=== PATIENT | female | born 1955 | race Caucasian/White ===

== ENCOUNTER 2016-11-14 11:44 | Emergency (ER) | payer OTHER, SELFPAY ==
[~2016-11-14] VITALS: Ht 167.6 cm; Wt 72.7 kg
[2016-11-14 13:18] LABS: HEMOGLOBIN 14.4 g/dL (11.7-16.4)
[2016-11-14 13:30] LABS: ASPARTATE AMINO TRANSFERASE 17 U/L (15-37); BLOOD UREA NITROGEN 14 mg/dL (7-18)
[2016-11-14 16:11] VITALS: BP 184/92
== END 2016-11-14 16:11 | disposition home or self-care (01) ==
LOC: ED 15:47
DX: I80.01 Phlebitis and thrombophlebitis of superficial vessels of right lower extremity (principal); F17.200 Nicotine dependence, unspecified, uncomplicated
CPT/HCPCS: 36415; 71020; 80053; 83880; 85025; 93005; 99285

== ENCOUNTER 2019-02-07 12:34 | Inpatient (IN) | payer MEDICARE, OTHER ==
[~2019-02-07] VITALS: Ht 167.6 cm; Wt 73.7 kg
--- NOTE | 2019-02-07 12:48 | NUR ---
Pt ambulatory with personal cane with steady gait and balance from triage to ED room.
--- NOTE | 2019-02-07 13:03 | NUR ---
PT ARRIVED TO ROOM 02 AMBULATORY. PT C/O "BOTH FEET ARE LIKE THIS (SWOLLEN) OFF AND ON FOR 5 WEEKS. PAIN COMING UP LEGS. HAVE BEEN REAL SHORT OF BREATH THE LAST FEW DAYS" PT AAO X 4, LUNG SOUNDS DIMINISHED THROUGHOUT, STRONG PRODUCTIVE COUGH. PT HAS ODOR OF CIRGATETTES, CURRENTLY SMOKES. AT BEDSIDE. PT IN GOWN AND ATTACHED TO MONITOR.
--- NOTE | 2019-02-07 13:22 | NUR ---
LUNCH RN: MD TO BEDSIDE FOR ASSESSMENT. AWAITING ORDERS AT THIS TIME
--- NOTE | 2019-02-07 13:35 | NUR ---
LUNCH RN: ORDERS RECEIVED, RAD AT BEDSIDE. ALL MONITORS IN PLACE. AWAITING LABS AND TEST RESULTS AT THIS TIME. PT CONTINUES TO BE HTN WITH NO HX. ABLE TO SPEAK IN FULL SENTENCES. AT BEDSIDE. CALL LIGHT WITHIN REACH. WILL CONTINUE TO MONITOR
[2019-02-07 13:45] LABS: BASOPHILS # (AUTO) 0.05 x10^3/uL (0-0.1); BASOPHILS % (AUTO) 1 % (0-1); EOSINOPHILS # (AUTO) 0.04 x10^3/uL (0-0.4); EOSINOPHILS % (AUTO) 1 % (1-7); LYMPHOCYTES # (AUTO) 0.99 x10^3/uL (1-3.4); LYMPHOCYTES % (AUTO) 18 % (22-44); MD NO; MEAN CORPUSCULAR HEMOGLOBIN 29.1 pg (27.0-34.8); MEAN CORPUSCULAR HGB CONC 32.1 g/dL (32.4-35.8); MEAN CORPUSCULAR VOLUME 90.6 fL (80-100); MONOCYTES # (AUTO) 0.47 x10^3/uL (0.2-0.8); MONOCYTES % (AUTO) 8 % (2-9); NEUTROPHILS # (AUTO) 4.04 x10^3/uL (1.8-6.8); NEUTROPHILS % (AUTO) 72 % (42-75); PLATELET COUNT 219 x10^3/uL (130-400); RED BLOOD COUNT 5.04 x10^6/uL (3.82-5.3); RED CELL DISTRIBUTION WIDTH 15.1 % (9.6-15.2)
[2019-02-07 13:49] LABS: INTERNATIONAL NORMALIZED RATIO 1.19 (0.93-1.1); PROTHROMBIN TIME 12.4 Seconds (9.6-11.5)
[2019-02-07 13:50] LABS: ALANINE AMINOTRANSFERASE 39 U/L (12-78); ALBUMIN 3.4 g/dL (3.4-5.0); ANION GAP 8 mmol/L (5-15); CALCIUM 8.7 mg/dL (8.5-10.1); CHLORIDE 108 mmol/L (98-107)
[2019-02-07 13:55] LABS: ALKALINE PHOSPHATASE 74 U/L (45-117); BILIRUBIN,TOTAL 0.9 mg/dL (0.2-1.0); TOTAL PROTEIN 6.2 g/dL (6.4-8.2)
--- NOTE | 2019-02-07 14:00 | NUR ---
REPORT RECEIVED FROM BREAK RN. PT RESTING COMFORTABLY IN GOWN AND ON GURNEY. AT BEDSIDE.
--- NOTE | 2019-02-07 14:18 | NUR ---
20G PIV ESTABLISHED BY THIS RN IN LEFT AC.
--- NOTE | 2019-02-07 14:24 | NUR ---
NOTIFIED OF PT'S LAB RESULTS. AWAITING MD ORDERS.
--- NOTE | 2019-02-07 14:48 | NUR ---
PT AMBULATED TO RESTROOM WITH STEADY GAIT AND PERSONAL CANE. STAFF NEARBY TO ASSIST.
[2019-02-07] MEDS ORDERED: NICOTINE 14MG/24 HR PATCH.TD24 TD ONE (15:30)
[2019-02-07] MEDS ORDERED: SODIUM CHLORIDE FLUSH 10ML SYR IVF PRN (15:30)
[2019-02-07] MEDS ORDERED: NICOTINE 14MG/24 HR PATCH.TD24 ONE (15:30)
[2019-02-07] MEDS ORDERED: ASPIRIN 81 MG TABLET CHEW PO ONE (15:30)
[2019-02-07] MEDS ORDERED: ASPIRIN 81 MG TABLET CHEW ONE (15:30)
--- NOTE | 2019-02-07 15:33 | NUR ---
PT MEDICATED PER MD ORDER, SEE MAR. PT RESTING ON EOB PER REQUEST, AT BEDSIDE.
--- NOTE | 2019-02-07 15:49 | NUR ---
REPORT GIVEN TO MELANI MERA. PT TO TRANSFER TO NEW ROOM WITH ALL BELONGINGS AND CHART.
--- NOTE | 2019-02-07 16:00 | NUR ---
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
[2019-02-07 16:11] VITALS: BP 191/123
[2019-02-07] MEDS ORDERED: NITROGLYCERIN 0.4 MG BOTTLE (25 TABS) SL PRN (16:30)
[2019-02-07] MEDS ORDERED: LABETALOL 5MG/ML, 20ML IVPush PRN (16:30)
[2019-02-07] MEDS ORDERED: LIDODERM 5% PATCH TD PRN (16:30)
[2019-02-07] MEDS ORDERED: NITROGLYCERIN 0.4 MG/SPRAY SL PRN (16:30)
[2019-02-07] MEDS: FUROSEMIDE 40 MG/4 ML IV SCH ×2 (16:48→16:57)
[2019-02-07 17:02] LABS: CHOLESTEROL, TOTAL 181 mg/dL (140-239); TRIGLYCERIDES 111 mg/dL (50-200); VLDL CHOLESTEROL 22 mg/dL (0-25)
[2019-02-07 17:05] LABS: CHOL/HDL RATIO 4.6; HDL CHOL % 22 % (28-40); HDL CHOLESTEROL (DIRECT) 39 mg/dL (40-60); LDL CHOLESTEROL,CALCULATED 120 mg/dL (54-169); LDL/HDL RATIO 3.1 (0.5-3.0); TROPONIN I 0.065 ng/mL (0.000-0.045)
[2019-02-07 17:21] LABS: HEMOGLOBIN A1C 5.5 % (4.2-6.3)
[2019-02-07 19:58] VITALS: BP 181/127
[2019-02-07] MEDS: hydrALAzine 20 MG/ML, 1ML IVPush PRN (20:15)
[2019-02-07] MEDS: ENOXAPARIN 40 MG/0.4 ML SQ SCH (20:18)
[2019-02-07 21:34] VITALS: BP_SYST 187; BP_DIAS 113; BP_DIAS 123
[2019-02-07] MEDS: LABETALOL 5 MG/ML SYRINGE IVPush PRN (21:36)
[2019-02-07] MEDS: ACETAMINOPHEN 325 MG TABLET PO PRN (21:38)
[2019-02-07 22:45] VITALS: BP 160/91
[2019-02-07 23:18] LABS: TROPONIN I 0.057 ng/mL (0.000-0.045)
[2019-02-08 02:10] VITALS: BP 170/94
[2019-02-08 04:56] LABS: BASOPHILS # (AUTO) 0.04 x10^3/uL (0-0.1); BASOPHILS % (AUTO) 1 % (0-1); EOSINOPHILS % (AUTO) 2 % (1-7); LYMPHOCYTES # (AUTO) 1.25 x10^3/uL (1-3.4); LYMPHOCYTES % (AUTO) 24 % (22-44); MD NO; MEAN CORPUSCULAR HEMOGLOBIN 29.9 pg (27.0-34.8); MEAN CORPUSCULAR HGB CONC 32.6 g/dL (32.4-35.8); MEAN CORPUSCULAR VOLUME 91.5 fL (80-100); MEAN PLATELET VOLUME 8.1 fL (7.4-10.4); MONOCYTES # (AUTO) 0.47 x10^3/uL (0.2-0.8); MONOCYTES % (AUTO) 9 % (2-9); NEUTROPHILS % (AUTO) 65 % (42-75); PLATELET COUNT 204 x10^3/uL (130-400); RED BLOOD COUNT 5.14 x10^6/uL (3.82-5.3)
[2019-02-08 05:05] LABS: ALBUMIN 2.9 g/dL (3.4-5.0); ANION GAP 9 mmol/L (5-15); CALCIUM 8.1 mg/dL (8.5-10.1); CHLORIDE 108 mmol/L (98-107)
[2019-02-08 05:16] LABS: ALANINE AMINOTRANSFERASE 34 U/L (12-78); ALKALINE PHOSPHATASE 72 U/L (45-117); BILIRUBIN,TOTAL 0.9 mg/dL (0.2-1.0); TOTAL PROTEIN 5.5 g/dL (6.4-8.2)
[2019-02-08 06:20] VITALS: BP 173/106
[2019-02-08] MEDS: ASPIRIN 325 MG TABLET EC PO SCH (06:22)
[2019-02-08] MEDS: LABETALOL 5 MG/ML SYRINGE IVPush PRN (06:22)
[2019-02-08 06:58] VITALS: BP 157/96
[2019-02-08] MEDS ORDERED: POTASSIUM CHLORIDE 20 MEQ TAB.ER.PRT PO ONE ×2 (08:00→11:00)
[2019-02-08] MEDS ORDERED: LISINOPRIL 10 MG TABLET PO SCH (09:00)
[2019-02-08] MEDS: FUROSEMIDE 40 MG/4 ML IV SCH ×2 (09:26→16:42)
[2019-02-08 13:39] VITALS: BP 149/91
[2019-02-08 16:38] VITALS: BP 145/89
[2019-02-08 18:59] VITALS: BP 133/81
[2019-02-08] MEDS: ENOXAPARIN 40 MG/0.4 ML SQ SCH (20:17)
[2019-02-09 01:14] VITALS: BP 164/93
[2019-02-09 05:10] LABS: BASOPHILS # (AUTO) 0.03 x10^3/uL (0-0.1); BASOPHILS % (AUTO) 1 % (0-1); EOSINOPHILS # (AUTO) 0.12 x10^3/uL (0-0.4); EOSINOPHILS % (AUTO) 2 % (1-7); LYMPHOCYTES # (AUTO) 1.41 x10^3/uL (1-3.4); LYMPHOCYTES % (AUTO) 25 % (22-44); MD NO; MEAN CORPUSCULAR HGB CONC 32.6 g/dL (32.4-35.8); MEAN PLATELET VOLUME 8.3 fL (7.4-10.4); MONOCYTES # (AUTO) 0.56 x10^3/uL (0.2-0.8); MONOCYTES % (AUTO) 10 % (2-9); NEUTROPHILS # (AUTO) 3.52 x10^3/uL (1.8-6.8); NEUTROPHILS % (AUTO) 62 % (42-75); PLATELET COUNT 194 x10^3/uL (130-400); RED BLOOD COUNT 4.93 x10^6/uL (3.82-5.3); RED CELL DISTRIBUTION WIDTH 15.2 % (9.6-15.2)
[2019-02-09 05:17] LABS: ANION GAP 8 mmol/L (5-15); CALCIUM 8.2 mg/dL (8.5-10.1); CHLORIDE 108 mmol/L (98-107); CREATININE 0.86 mg/dL (0.55-1.02)
[2019-02-09 05:43] VITALS: BP 173/100
[2019-02-09] MEDS: ACETAMINOPHEN 325 MG TABLET PO PRN (05:48)
[2019-02-09] MEDS: ASPIRIN 325 MG TABLET EC PO SCH (05:48)
[2019-02-09] MEDS: hydrALAzine 20 MG/ML, 1ML IVPush PRN (05:49)
[2019-02-09 07:37] VITALS: BP 173/95
[2019-02-09] MEDS: FUROSEMIDE 40 MG/4 ML IV SCH (07:37)
[2019-02-09] MEDS ORDERED: POTASSIUM CHLORIDE 20 MEQ TAB.ER.PRT PO ONE (08:30)
[2019-02-09] MEDS ORDERED: LISINOPRIL 10 MG TABLET PO SCH (09:30)
[2019-02-09 13:27] VITALS: BP 168/77
[2019-02-09 13:49] LABS: MICROSCOPIC NOT IND
[2019-02-09] MEDS: LISINOPRIL 5 MG TABLET PO SCH (14:55)
[2019-02-09] MEDS ORDERED: NICOTINE 21 MG/24 HR PATCH.TD24 TD ONE (16:00)
[2019-02-09] MEDS: METOPROLOL TARTRATE 25 MG TABLET PO SCH (17:26)
[2019-02-09 19:46] VITALS: BP 149/91
[2019-02-09] MEDS: ENOXAPARIN 40 MG/0.4 ML SQ SCH (20:27)
[2019-02-10 00:59] VITALS: BP 151/90
[2019-02-10 05:21] VITALS: BP 166/90
[2019-02-10] MEDS: ASPIRIN 325 MG TABLET EC PO SCH (05:22)
[2019-02-10] MEDS: METOPROLOL TARTRATE 25 MG TABLET PO SCH (05:23)
[2019-02-10 05:54] LABS: BASOPHILS # (AUTO) 0.06 x10^3/uL (0-0.1); BASOPHILS % (AUTO) 1 % (0-1); EOSINOPHILS # (AUTO) 0.12 x10^3/uL (0-0.4); EOSINOPHILS % (AUTO) 2 % (1-7); LYMPHOCYTES # (AUTO) 1.54 x10^3/uL (1-3.4); LYMPHOCYTES % (AUTO) 27 % (22-44); MD NO; MEAN CORPUSCULAR HEMOGLOBIN 29.3 pg (27.0-34.8); MEAN CORPUSCULAR HGB CONC 32.4 g/dL (32.4-35.8); MEAN CORPUSCULAR VOLUME 90.5 fL (80-100); MONOCYTES # (AUTO) 0.59 x10^3/uL (0.2-0.8); MONOCYTES % (AUTO) 10 % (2-9); NEUTROPHILS % (AUTO) 60 % (42-75); PLATELET COUNT 214 x10^3/uL (130-400); RED BLOOD COUNT 5.19 x10^6/uL (3.82-5.3); RED CELL DISTRIBUTION WIDTH 15.5 % (9.6-15.2)
[2019-02-10 06:08] LABS: ANION GAP 7 mmol/L (5-15); CHLORIDE 103 mmol/L (98-107)
[2019-02-10 06:10] LABS: CREATININE 1.08 mg/dL (0.55-1.02)
[2019-02-10 06:56] VITALS: BP 156/95
[2019-02-10] MEDS: LISINOPRIL 5 MG TABLET PO SCH (08:11)
[2019-02-10] MEDS ORDERED: FUROSEMIDE 20 MG TABLET PO SCH (09:00)
[2019-02-10] MEDS ORDERED: SPIR25TA5 PO (11:15)
[2019-02-10] MEDS ORDERED: ATOR-2 PO (11:15)
[2019-02-10] MEDS ORDERED: METO200T47 PO (11:15)
[2019-02-10] MEDS ORDERED: LISI5TAB7 PO (11:15)
[2019-02-10] MEDS ORDERED: METOPROLOL TARTRATE 25 MG TABLET PO SCH (18:00)
[2019-02-10] MEDS ORDERED: ATORVASTATIN 10 MG TABLET PO SCH (21:00)
[2019-02-11] MEDS ORDERED: SPIRONOLACTONE 25 MG TABLET PO SCH (09:00)
== END 2019-02-10 15:25 | disposition home health service (06) | DRG 291 ==
LOC: ED 13:49 → EDIP 15:18 → 5SO 16:04 → DCLOUNGE 02-10 15:05
PROVIDERS: ADMIT Internal Medicine; ATTEND Internal Medicine
DX: I11.0 Hypertensive heart disease with heart failure (principal); J96.01 Acute respiratory failure with hypoxia; I24.8 Other forms of acute ischemic heart disease; I31.3 Pericardial effusion (noninflammatory); I50.43 Acute on chronic combined systolic (congestive) and diastolic (congestive) heart failure; F03.90 Unspecified dementia, unspecified severity, without behavioral disturbance, psychotic disturbance, mood disturbance, and anxiety; I16.0 Hypertensive urgency; E87.6 Hypokalemia; J44.9 Chronic obstructive pulmonary disease, unspecified; I35.8 Other nonrheumatic aortic valve disorders; F17.210 Nicotine dependence, cigarettes, uncomplicated; I37.1 Nonrheumatic pulmonary valve insufficiency; Z86.718 Personal history of other venous thrombosis and embolism; Z86.72 Personal history of thrombophlebitis; Z91.14 Patient's other noncompliance with medication regimen; Z80.8 Family history of malignant neoplasm of other organs or systems
CPT/HCPCS: 36415; 71045; 80048; 80053; 80061; 81003; 82140; 82607; 83036; 83735; 83880; 84100; 84132; 84443; 84484; 85025; 85610; 85730; 93005; 93306; 93970; G0378; J1650; J1940; 92523-GN; G0515-GN; J0360

== ENCOUNTER 2019-03-10 18:19 | Emergency (ER) | payer MEDICARE ==
[~2019-03-10] VITALS: Ht 167.6 cm; Wt 77.1 kg
[~2019-03-10 18:19] MED LIST: ATOR-2 PO; LISI5TAB7 PO; METO200T47 PO; SPIR25TA5 PO
[2019-03-10 18:54] LABS: BASOPHILS # (AUTO) 0.07 x10^3/uL (0-0.1); BASOPHILS % (AUTO) 1 % (0-1); EOSINOPHILS # (AUTO) 0.14 x10^3/uL (0-0.4); EOSINOPHILS % (AUTO) 2 % (1-7); LYMPHOCYTES # (AUTO) 0.87 x10^3/uL (1-3.4); LYMPHOCYTES % (AUTO) 15 % (22-44); MD NO; MEAN CORPUSCULAR HGB CONC 33.1 g/dL (32.4-35.8); MEAN CORPUSCULAR VOLUME 90.6 fL (80-100); MONOCYTES # (AUTO) 0.59 x10^3/uL (0.2-0.8); MONOCYTES % (AUTO) 10 % (2-9); NEUTROPHILS # (AUTO) 4.27 x10^3/uL (1.8-6.8); NEUTROPHILS % (AUTO) 72 % (42-75); PLATELET COUNT 184 x10^3/uL (130-400); RED BLOOD COUNT 4.83 x10^6/uL (3.82-5.3); RED CELL DISTRIBUTION WIDTH 15.8 % (9.6-15.2)
[2019-03-10 19:06] LABS: ALANINE AMINOTRANSFERASE 29 U/L (12-78); ALBUMIN 3.5 g/dL (3.4-5.0); ANION GAP 6 mmol/L (5-15); CALCIUM 8.8 mg/dL (8.5-10.1); CHLORIDE 111 mmol/L (98-107); CREATININE 1.12 mg/dL (0.55-1.02); SALICYLATE LEVEL 3.4 mg/dL (2.8-20.0)
[2019-03-10 19:08] LABS: ALKALINE PHOSPHATASE 71 U/L (45-117); BILIRUBIN,TOTAL 0.8 mg/dL (0.2-1.0); TOTAL PROTEIN 6.8 g/dL (6.4-8.2)
--- NOTE | 2019-03-10 19:47 | NUR ---
pt in triage, then to room 40
--- NOTE | 2019-03-10 19:54 | NUR ---
pt ambulatory to the bathroom with steady gait to provide urine sample.
--- NOTE | 2019-03-10 20:11 | NUR ---
pt here with complaint of seeing and hearing things that are not there. pt is a poor historian. pt has significant other at bedside who states she hears and sees people in their apartment that are not there. pt speaking nonsensically making statments like, "my incognance is wasted right now" and "i need to have brain surgery" pt was recently seen in this ER for exacerbation of CHF and when asked by this nurse if she had any problems withe her heart, her answer was no.
--- NOTE | 2019-03-10 20:14 | NUR ---
pt went to the bathroom and was unable to provide urine sample.
--- NOTE | 2019-03-10 20:15 | NUR ---
er pa jermaine in to assess pt
--- NOTE | 2019-03-10 21:29 | NUR ---
pt ambulatory to the bathroom to provide urine sample at this time.
--- NOTE | 2019-03-10 21:50 | NUR ---
pt provided urine sample. pt resting on gurney. no acute distress noted. pt family at bedside.
[2019-03-10 22:04] LABS: MICROSCOPIC NOT IND
[2019-03-10 22:07] LABS: CULTURE INDICATED? NO
[2019-03-10 22:15] LABS: AMPHETAMINE SCREEN, URINE Negative (Negative); BARBITURATE SCREEN, URINE Negative (Negative); BENZODIAZEPINE SCREEN, URINE Negative (Negative); CANNABINOID SCREEN, URINE Negative (Negative); COCAINE SCREEN, URINE Negative (Negative); METHADONE SCREEN, URINE Negative (Negative); OPIATE SCREEN, URINE Negative (Negative)
[2019-03-10 22:56] VITALS: BP 186/105
--- NOTE | 2019-03-10 22:56 | NUR ---
pt ambulatory to the bathroom with steady gait
[2019-04-29] MEDS ORDERED: XOPENEX (21:52)
[2019-04-29] MEDS ORDERED: ADVAIR (22:01)
[2019-05-15] MEDS ORDERED: LISI-170 PO (17:04)
[2019-05-15] MEDS ORDERED: POTA20TA6 PO (17:04)
[2019-05-15] MEDS ORDERED: ASPI81TA45 PO (17:04)
[2019-05-15] MEDS ORDERED: SIMV20TA3 PO (17:04)
[2019-05-15] MEDS ORDERED: QUET25TA7 PO (17:04)
[2019-05-15] MEDS ORDERED: FURO-93 PO ×2 (17:06)
[2019-05-16] MEDS ORDERED: CARV6.2512 PO (08:55)
[2019-05-16] MEDS ORDERED: FURO20TA3 PO (08:56)
== END 2019-03-10 23:37 | disposition home or self-care (01) ==
LOC: ED 20:30
DX: R41.0 Disorientation, unspecified (principal); I11.0 Hypertensive heart disease with heart failure; I50.9 Heart failure, unspecified; Z86.718 Personal history of other venous thrombosis and embolism
CPT/HCPCS: 36415; 70450; 80053; 80307; 81003; 82140; 85025; 93005; 99284

== ENCOUNTER 2019-09-24 15:55 | Emergency (ER) | payer MEDICAID, MEDICARE ==
[~2019-09-24] VITALS: Ht 170.2 cm; Wt 65.0 kg
[~2019-09-24 15:55] MED LIST changes: +ADVAIR; +ASPI81TA45 PO; +CARV6.2512 PO; +FURO-93 PO; +FURO20TA3 PO; +LISI-170 PO; +POTA20TA6 PO; +QUET25TA7 PO; +SIMV20TA19 PO; +XOPENEX
--- NOTE | 2019-09-24 17:43 | NUR ---
IV PLACED,LABS DRAWN WIH START. PT ASSISTED UP TO BSC WITH SBA. URINE COLLECTED/SENT TO LAB. PT UPDATED ON POC. PT REFUSING MORPHINE AT THIS TIME, STATES "MY PAIN ISN'T BAD ENOUGH RIGHT NOW". PT ON ALL ROOM MONITORING. CALL LIGHT WITHIN REACH, FAMILY AT BS.
--- NOTE | 2019-09-24 17:58 | NUR ---
O2 SAT DIPPING TO 87-88%. OXYGEN PLACED AT 2LITERS VIA NC. VS UPDATED IN COMPUTER.
[2019-09-24] MEDS ORDERED: ONDANSETRON 2MG/ML, 2ML IVPush ONE (18:00)
[2019-09-24] MEDS ORDERED: SODIUM CHLORIDE FLUSH 10ML SYR IVF ONE (18:00)
[2019-09-24 18:02] LABS: ALANINE AMINOTRANSFERASE 11 U/L (12-78); ALBUMIN 3.2 g/dL (3.4-5.0); ANION GAP 5 mmol/L (5-15); CALCIUM 8.7 mg/dL (8.5-10.1); CHLORIDE 108 mmol/L (98-107); CREATININE 1.01 mg/dL (0.55-1.02)
[2019-09-24 18:07] LABS: ALKALINE PHOSPHATASE 68 U/L (45-117); BILIRUBIN,TOTAL 0.3 mg/dL (0.2-1.0); TOTAL PROTEIN 6.7 g/dL (6.4-8.2)
[2019-09-24 18:13] LABS: BASOPHILS # (AUTO) 0.05 x10^3/uL (0-0.1); BASOPHILS % (AUTO) 1 % (0-1); EOSINOPHILS # (AUTO) 0.21 x10^3/uL (0-0.4); EOSINOPHILS % (AUTO) 2 % (1-7); LYMPHOCYTES # (AUTO) 1.78 x10^3/uL (1-3.4); LYMPHOCYTES % (AUTO) 21 % (22-44); MD NO; MEAN CORPUSCULAR HEMOGLOBIN 31.1 pg (27.0-34.8); MEAN CORPUSCULAR HGB CONC 34.1 g/dL (32.4-35.8); MEAN CORPUSCULAR VOLUME 91.3 fL (80-100); MEAN PLATELET VOLUME 8.1 fL (7.4-10.4); MONOCYTES # (AUTO) 0.69 x10^3/uL (0.2-0.8); MONOCYTES % (AUTO) 8 % (2-9); NEUTROPHILS # (AUTO) 5.94 x10^3/uL (1.8-6.8); NEUTROPHILS % (AUTO) 69 % (42-75); PLATELET COUNT 200 x10^3/uL (130-400); RED BLOOD COUNT 4.09 x10^6/uL (3.82-5.3); RED CELL DISTRIBUTION WIDTH 13.5 % (9.6-15.2)
[2019-09-24] MEDS ORDERED: hydrALAzine 20 MG/ML, 1ML IV ONE ×2 (18:30→20:00)
[2019-09-24] MEDS ORDERED: hydrALAzine 20 MG/ML, 1ML ONE (19:00)
[2019-09-24] MEDS ORDERED: ONDANSETRON 2MG/ML, 2ML ONE (19:01)
[2019-09-24] MEDS ORDERED: MORPHINE SULFATE 4 MG/ML, 1ML ONE ×2 (19:01→19:55)
[2019-09-24] MEDS: MORPHINE SULFATE 4 MG/ML, 1ML IVPush PRN ×2 (19:05→20:10)
--- NOTE | 2019-09-24 19:10 | NUR ---
Report received from Alexis MERA, pt c/o pain 03/21, medicated per OCT. Vitals signs monitoring in place, family/POA at bedside.
[2019-09-24] MEDS ORDERED: OMNIPAQUE 350 MG/ML, 100ML BOTTLE ONE (20:18)
--- NOTE | 2019-09-24 20:27 | NUR ---
Pt back from CT, resting in gurney, rails up and locked, vitals monitors applied, call light within reach. Medicated per OCT.
--- NOTE | 2019-09-24 22:29 | NUR ---
PT D/C WITH D/C SUMMARY. IV D/C WITH TIP INTACT. PT VS UPDATED IN EMR. PT WHEELED TO REGISTRATION DESK IN WHEELCHAIR FOR D/C HOME WITH FAMILY, AND PT AND FAMILY DENY ANY OTHER NEEDS PERTAINING TO THIS VISIT.
[2019-09-24 22:31] VITALS: BP 195/97
== END 2019-09-24 22:33 | disposition home or self-care (01) ==
LOC: ED 19:54
DX: M84.40XD Pathological fracture, unspecified site, subsequent encounter for fracture with routine healing (principal); I50.9 Heart failure, unspecified; R60.9 Edema, unspecified; I11.0 Hypertensive heart disease with heart failure; J44.9 Chronic obstructive pulmonary disease, unspecified; F17.200 Nicotine dependence, unspecified, uncomplicated; Z86.718 Personal history of other venous thrombosis and embolism; Z85.118 Personal history of other malignant neoplasm of bronchus and lung
CPT/HCPCS: 36415; 71045; 74177; 80053; 83880; 85025; 93005; 93970; 96374; 96375; 96376; 99285; J0360; J2270; J2405; Q9967